=== PATIENT | male | born 1975 | race Caucasian/White ===

== ENCOUNTER 2018-07-14 15:25 | Emergency (ER) | payer SELFPAY ==
--- NOTE | 2018-07-14 15:39 | Emergency Department Record ---
History of Present Illness - General Chief complaint: Lower Extremity Pain Stated complaint: RT CALF PAIN/INFECTION Time Seen by Provider: 07/14/18 15:27 Source: Patient, Family Mode of Arrival: Ambulatory Limitations: No limitations - History of Present Illness Initial comments: 42 yo male presents with a concern about his right lower leg. He has chronic venous changes of both legs. He scratched the right calf a week ago. He has developed some swelling. The swelling goes down with elevation at night to match the left leg size. There has been weeping over the last week with skin sensitivity. No fevers. The skin is sensitive to touch. He reports no fevers. No foot pain or numbness. No weakness. He does not have a PCP. He denies any medications, other current medical issues. He had a pericardial effusion about 5 years ago that was treated with a window. He states the bilateral leg have had the chronic stasis changes for many years. MD Complaint: Extremity pain, Extremity swelling -: Days(s) Location: Right History of Same: Yes -: Yes Myalgia Radiation: Distal Quality: Aching, Burning Consistency: Constant Improves with: Elevation, Immobilization Worsens with: Exertion, Palpation, Walking, Weight bearing Associated Symptoms: Denies other symptoms - Related Data Previous Rx's Medication Instructions Recorded Cephalexin [Keflex] 500 mg PO TID #30 cap 07/14/18 Sulfamethoxazole/Trimethoprim 1 each PO BID #20 tablet 07/14/18 [Bactrim Ds Tablet] Allergies Allergy/AdvReac Type Severity Reaction Status Date / Time No Known Drug Allergies Allergy Verified 07/14/18 15:39 Review of Systems Constitutional: Denies: Chills, Fever, Malaise, Weakness Eyes: Denies: Eye discharge ENT: Denies: Congestion, Throat pain Respiratory: Denies: Cough Cardiovascular: Denies: Chest pain, Syncope Endocrine: Denies: Fatigue Gastrointestinal: Denies: Abdominal pain, Diarrhea, Nausea, Vomiting Genitourinary: Denies: Dysuria, Frequency, Hematuria Musculoskeletal: Reports: Other (Calf swelling). Denies: Arthralgia, Back pain , Joint swelling, Myalgia Skin: Reports: Change in color Neurological: Denies: Headache, Numbness, Weakness Psychiatric: Denies: Anxiety Hematological/Lymphatic: Denies: Blood Clots, Easy bleeding, Easy bruising Physical Exam - General General Appearance: Alert, Oriented x3, Cooperative, No acute distress - Head Head exam: Atraumatic, Normal inspection - Eye Eye exam: Normal appearance. negative: Conjunctival injection - ENT ENT exam: Normal exam Ear exam: Normal external inspection Nasal Exam: Normal inspection Mouth exam: Normal external inspection - Neck Neck exam: Normal inspection, Full ROM. negative: Tenderness - Respiratory Respiratory exam: Normal lung sounds bilaterally. negative: Respiratory distress - Cardiovascular Cardiovascular Exam: Regular rate, Normal rhythm, Normal heart sounds Peripheral Pulses: 2+: Dorsalis Pedis (R) - GI/Abdominal GI/Abdominal exam: Soft. negative: Tenderness - Rectal Rectal exam: Deferred - exam: Deferred - Extremities Extremities exam: Calf tenderness, Pedal edema, Tenderness. negative: Normal inspection Image of Full Body: 1 - bilateral symmetric venous stasis changes with chronic scaling, darkened skin. The right calf has some swelling compared to the left. There is some superficial weeping lateral right calf. - Back Back exam: Reports: Normal inspection - Neurological Neurological exam: Alert, Oriented X3 - Psychiatric Psychiatric exam: Normal affect, Normal mood - Skin Skin exam: Other (chronic bilateral venous stasis changes.) Course - Reevaluation(s) Reevaluation #1: No prior records on the EMR 07/14/18 15:42 07/14/18 15:49 Vitals reviewed. No fever currently. Elevated BP noted. 07/14/18 16:11 No acute changes on the CBC 07/14/18 16:54 No changes on the BMP 07/14/18 16:55 [facility] records obtained. R peroneal DVT in R popliteal and calf muscle veins. He was treated with Xarelto. 07/14/18 17:58 The Venous doppler of the bilateral lower legs demonstrated non occlusive thrombus in the R popliteal vein and non visualization of the R peroneal and anterior tibial veins all of which could be chronic. Left is normal. Given this is likely chronic he will not need anticoagulation. I advised and aspirin daily. He will be DC's on antibiotics. I did offer admission for IV but he declined. He will stay home, elevate, and return if worse. He was referred to the [facility] clinic. Medical Decision Making - Lab Data Result diagrams: 07/14/18 15:40 07/14/18 15:40 Disposition Disposition: Discharge Clinical Impression: Chronic deep vein thrombosis (DVT) Cellulitis Qualifiers: Site of cellulitis: extremity Site of cellulitis of extremity: lower extremity Laterality: right Qualified Code(s): L03.115 - Cellulitis of right lower limb Disposition: Home, Self-Care Condition: (1) Good Instructions: Cellulitis (ED) Additional Instructions: Elevate the leg to minimize swelling Return if you have fever, swelling, pain, pus, or any new concerns Take an aspirin daily Take the antibiotics as directed. Return this week if not improving, sooner if worse Prescriptions: Cephalexin [Keflex] 500 mg PO TID #30 cap Sulfamethoxazole/Trimethoprim [Bactrim Ds Tablet] 1 each PO BID #20 tablet Referrals: KAE HOOVER [MEDICAL DOCTOR] - Forms: Patient Portal Access Time of Disposition: 18:09 Quality - Quality Measures Quality Measures: N/A - Blood Pressure Screening Does Patient Have Any of the Following: No Blood Pressure Classification: Hypertensive Reading Systolic Measurement: 154 Diastolic Measurement: 99 Screening for High Blood Pressure: < Pre-Hypertensive BP, F/U Documented > [ G8950] Pre-Hypertensive Follow-up Interventions: Referral to alternative/primary care provider.
[2018-07-14] MEDS ORDERED: CLINDAMYCIN 600MG/50ML PREMIX 600 MG/50 ML BAG IVPB ONE (15:40)
[2018-07-14] MEDS ORDERED: HYDROCODONE/APAP 7.5/325MG TABLET PO ONE (15:49)
[2018-07-14 15:57] LABS: BASO % 0.3 % (0-6); EOS % 2.5 % (0-6); GRAN % 55.1 % (47-80); HEMATOCRIT 52.3 % (42.0-52.0); HEMOGLOBIN 17.3 gm/dl (14.0-18.0); LYMPH % 32.4 % (16-45); MEAN CELL VOLUME 91.8 fl (81-97); MEAN CORPUSCULAR HEMOGLOBIN 30.4 pg (27-33); MEAN CORPUSCULAR HGB CONC 33.1 g/dl (32-36); MEAN PLATELET VOLUME 9.3 fl (7.4-10.4); MONO % 9.7 % (0-9); PLATELET COUNT 247 K/uL (130-400); WHITE BLOOD COUNT W/O DIFF 10.9 K/uL (4.2-12.2)
[2018-07-14 16:14] LABS: BLOOD UREA NITROGEN 17 mg/dL (6-20)
[2018-07-14 16:15] LABS: CREATININE 0.9 mg/dL (0.7-1.2); EST GLOMERULAR FILTRATION RATE > 60 mL/min
[2018-07-14 16:17] LABS: GLUCOSE,RANDOM 78 mg/dL (74-109)
[2018-07-14 16:20] LABS: ALB/GLOB RATIO 1.6 (1.1-1.8); ALBUMIN 4.3 g/dL (4.0-5.0); ALKALINE PHOSPHATASE 96 U/L (40-129); ALT/SGPT 18 U/L (<41); AST/SGOT 14 U/L (10.0-50.0)
--- NOTE | 2018-07-18 12:19 | US VENOUS DOPPLER REPORT ---
EXAM: BILATERAL VENOUS DOPPLER ULTRASOUND OF THE LOWER EXTREMITIES HISTORY: BILATERAL LEG SWELLING, BILATERAL PAIN AND REDNESS, HISTORY OF DVT BILATERALLY TWO YEARS AGO. POSSIBLE CURRENT DVT. TECHNIQUE: Emergency venous Doppler ultrasound of the lower extremities was performed bilaterally with color flow and spectral analysis Doppler. Compression and flow augmentation was utilized as well. Comparison: No prior ultrasound with which to compare. FINDINGS: On the right, the visualized deep venous anatomy of the thigh appeared negative. In the popliteal region, there did appear to be some nonocclusive thrombus within the popliteal vein. Within the calf, flow is seen within the right posterior tibial vein, but no definite flow is seen in the peroneal or anterior tibial vein consistent with some thrombus in these calf veins on the right as well. On the left, the deep venous anatomy appeared negative throughout with color flow and spectral analysis Doppler. Compression and flow augmentation was evident as well on the left with no DVT on the left evident. IMPRESSION: 1. NEGATIVE VENOUS DOPPLER ULTRASOUND OF THE LEFT LOWER EXTREMITY. 2. APPEARANCE ON THE RIGHT LIKELY REPRESENTING NONOCCLUSIVE THROMBUS IN THE POPLITEAL VEIN WHICH MAY BE CHRONIC. NO FLOW COULD CLEARLY BE SEEN IN THE RIGHT PERONEAL OR ANTERIOR TIBIAL VEINS WELL CONSISTENT WITH SOME THROMBUS OF UNCERTAIN AGE IN THESE VESSELS. JOB NUMBER: [id number] MTDD
== END 2018-07-14 18:22 | disposition home or self-care (01) ==
LOC: ER 15:25
DX: I82.521 Chronic embolism and thrombosis of right iliac vein (principal); L03.115 Cellulitis of right lower limb; I10 Essential (primary) hypertension; F17.210 Nicotine dependence, cigarettes, uncomplicated
CPT/HCPCS: 80053; 85025; 93970; 96365; 99284

== ENCOUNTER 2019-05-13 17:22 | Emergency (ER) | payer SELFPAY ==
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
[2019-05-13] MEDS ORDERED: CEFTRIAXONE 1GM/50ML BAG 1 GM/50 ML BAG IVPB ONE (18:30)
[2019-05-13 18:56] LABS: ABSOLUTE NEUTROPHIL COUNT 6.63; BASO % 0.3 % (0-6); EOS % 1.7 % (0-6); HEMOGLOBIN 17.2 gm/dl (14.0-18.0); LYMPH % 25.7 % (16-45); MEAN CELL VOLUME 93.1 fl (81-97); MEAN CORPUSCULAR HEMOGLOBIN 30.2 pg (27-33); MEAN CORPUSCULAR HGB CONC 32.5 g/dl (32-36); MEAN PLATELET VOLUME 9.7 fl (7.4-10.4); MONO % 8.3 % (0-9); PLATELET COUNT 238 K/uL (130-400); RED BLOOD COUNT 5.69 M/uL (4.40-5.70); RED CELL DISTRIBUTION WIDTH 14.4 % (11.5-14.5); WHITE BLOOD COUNT W/O DIFF 10.4 K/uL (4.2-12.2)
[2019-05-13 19:09] LABS: BLOOD UREA NITROGEN 12 mg/dL (6-20); CREATININE 0.8 mg/dL (0.7-1.2); EST GLOMERULAR FILTRATION RATE > 60 mL/min
[2019-05-13 19:12] LABS: GLUCOSE,RANDOM 119 mg/dL (74-109)
[2019-05-13 19:15] LABS: C-REACTIVE PROTEIN 1.27 mg/dL (<0.5)
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
--- NOTE | 2019-05-15 09:37 | US VENOUS DOPPLER REPORT ---
EXAM: LEFT LOWER EXTREMITY VENOUS DOPPLER ULTRASOUND HISTORY: LEFT LOWER LEG PAIN, HISTORY OF DVT. TECHNIQUE: Venous Doppler ultrasound of the left lower extremity was performed with color flow and spectral analysis. Compression and flow augmentation was utilized as well. Comparison: Venous Doppler ultrasound of the left lower extremity dated 07/14/18. FINDINGS: Flow is seen throughout the deep venous anatomy of the visualized left lower extremity with no definite DVT identified, however, the posterior tibial vein was somewhat poorly visualized and the peroneal vein was not visualized. Also, while evaluating the deep venous anatomy on the left, note was made of a somewhat elongated irregular area of sonolucency within the left lower leg medially below the knee in the area of bruising. This area did not demonstrate any vascularity and could be a hematoma in the calf or possibly some form of cyst such as a Taveras's cyst extending down into the calf. IMPRESSION: 1. NO DEFINITE DVT IDENTIFIED ON THE LEFT, HOWEVER, PORTIONS OF THE ANTERIOR AND PERONEAL VEINS WERE NOT CLEARLY VISUALIZED. 2. SOME NONVASCULAR SONOLUCENCY WITHIN THE CALF IN THE AREA OF BRUISING WHICH COULD REPRESENT A CALF HEMATOMA OR POSSIBLY A TAVERAS'S CYST EXTENDING DOWN INTO THE CALF. JOB NUMBER: [id number] [facility]
== END 2019-05-13 19:44 | disposition home or self-care (01) ==
LOC: ER 17:22
DX: S80.12XA Contusion of left lower leg, initial encounter (principal); S80.812A Abrasion, left lower leg, initial encounter; R20.0 Anesthesia of skin; I10 Essential (primary) hypertension; F17.210 Nicotine dependence, cigarettes, uncomplicated; V86.59XA Driver of other special all-terrain or other off-road motor vehicle injured in nontraffic accident, initial encounter
CPT/HCPCS: 99284 ×2; 96365; 85025; 86140; 80048; 73590; 93971; J0696